=== PATIENT | male | born 1985 | race Two or more races ===

== ENCOUNTER 2023-12-18 04:36 | Emergency (ER) | payer OTHER ==
[~2023-12-18] VITALS: Ht 188 cm; Wt 106.6 kg
[2023-12-18] MEDS ORDERED: KETOROLAC TROMETHAMINE 60 MG VIAL IM STA (08:33)
[2023-12-18] MEDS ORDERED: ORPHENADRINE CITRATE 30 MG/ML AMPUL IM STA (08:33)
== END 2023-12-18 10:14 | disposition home or self-care (01) ==
LOC: ER 04:37
DX: S33.9XXA Sprain of unspecified parts of lumbar spine and pelvis, initial encounter (principal)